=== PATIENT | female | born 1950 | race African-American/Black ===

== ENCOUNTER 2023-12-21 08:40 | Inpatient (IN) | payer OTHER ==
[~2023-12-21] VITALS: Ht 170.2 cm; Wt 102.1 kg
[2023-12-21 08:40] VITALS: BP_SYST 155; PULSE 92; RESP 19; TEMP 97.9; O2SAT 100
[2023-12-21 08:59] LABS: BASOPHILS % (AUTO) 0.5 % (0.0-2.0); EOSINOPHILS % (AUTO) 1.1 % (0.0-4.0); HEMATOCRIT 35.4 % (36-48); HEMOGLOBIN 11.3 g/dL (12.0-16.0); LYMPHOCYTES # (AUTO) 1.3 K/uL (1.0-5.5); LYMPHOCYTES % (AUTO) 31.9 % (20.5-51.5); MEAN CORPUSCULAR HEMOGLOBIN 28 pg (27-31); MEAN CORPUSCULAR HGB CONC 32 % (32-36); MEAN CORPUSCULAR VOLUME 87 fL (79.0-98.0); MONOCYTES # (AUTO) 0.5 K/uL (0.0-1.0); MONOCYTES % (AUTO) 11.6 % (1.7-9.3); NEUTROPHILS # (AUTO) 2.3 K/uL (1.8-7.7); NEUTROPHILS % (AUTO) 54.9 % (40.0-70.0); PLATELET COUNT (AUTO) 224 K/uL (130-430); RED BLOOD CELL COUNT(AUTO) 4.08 MIL/uL (4.2-6.2); RED CELL DISTRIBUTION WIDTH 13.8 % (9.0-15.0); WHITE BLOOD COUNT (AUTO) 4.1 K/uL (4.8-10.8)
[2023-12-21] MEDS: NACL 0.9% 1,000 ML IV ONE (09:21)
[2023-12-21 09:38] LABS: ANION GAP 5 (5-15); CALCIUM 9.3 mg/dL (8.4-11.0); CARBON DIOXIDE 29 mmol/L (23-29); CHLORIDE 104 mmol/L (98-107); GLUCOSE 176 mg/dL (74-106); POTASSIUM 3.8 mmol/L (3.5-5.1); SODIUM SERUM 138 mmol/L (136-145); UREA NITROGEN, BLOOD 13 mg/dL (8-21)
[2023-12-21 09:44] LABS: ALANINE AMINOTRANSFERASE 7 U/L (12-78); ALBUMIN 2.9 g/dL (3.4-4.8); ASPARTATE AMINOTRANSFERASE 13 U/L (10-37); BILIRUBIN,DIRECT 0.2 mg/dL (0.0-0.3); TOTAL BILIRUBIN 0.6 mg/dL (0.0-1.0); TOTAL PROTEIN, SERUM 8.2 g/dL (6.4-8.3)
[2023-12-21] MEDS ORDERED: iohexoL 350 mgI/mL, 100 ML INFUS..BTL IV ONE ×2 (10:02)
[2023-12-21 10:19] LABS: BILIRUBIN,URINE NEGATIVE (NEGATIVE); BLOOD, URINE NEGATIVE (NEGATIVE); CLARITY/URINE CLEAR (CLEAR); COLOR,URINE YELLOW (YELLOW); GLUCOSE,URINE NEGATIVE (NEGATIVE); KETONES,URINE NEGATIVE (NEGATIVE); LEUKOCYTE ESTERASE ,URINE NEGATIVE (NEGATIVE); NITRITE, URINE NEGATIVE (NEGATIVE); PH,URINE 6.5 (5.0-8.0); PROTEIN URINE NEGATIVE (NEGATIVE)
[2023-12-21] MEDS ORDERED: LEVO150T8 PO (12:06)
[2023-12-21] MEDS ORDERED: DILT240C96 PO (12:06)
[2023-12-21] MEDS ORDERED: ANAS1TAB51 PO (12:06)
[2023-12-21] MEDS ORDERED: CARB1TAB33 PO (12:06)
[2023-12-21 17:52] VITALS: BP_SYST 145; PULSE 87; RESP 16; TEMP 98.7; O2SAT 98
[2023-12-21 19:00] VITALS: BP_SYST 148; PULSE 70; RESP 20; TEMP 98.4; O2SAT 100
[2023-12-21] MEDS: CARBIDOPA/LEVODOPA 25/100 MG TABLET PO SCH (19:58)
[2023-12-21 20:00] VITALS: BP_SYST 148; PULSE 70; RESP 20; TEMP 98.4; O2SAT 100
[2023-12-22 00:36] VITALS: BP_SYST 146; PULSE 72; RESP 16; TEMP 96.7; O2SAT 96
[2023-12-22 04:00] VITALS: RESP 20
[2023-12-22] MEDS: LEVOTHYROXINE SODIUM 0.15 MG TABLET PO SCH (05:41)
[2023-12-22 07:49] VITALS: O2SAT 98
[2023-12-22 07:56] VITALS: BP_SYST 178; PULSE 89; RESP 18; TEMP 98.9
[2023-12-22] MEDS: ANASTROZOLE 1 MG TABLET (ARIMIDEX) PO SCH (08:32)
[2023-12-22] MEDS: DILTIAZEM HCL 240 MG CAP.SR.24H PO SCH (08:33)
[2023-12-22 10:05] LABS: ANION GAP 4 (5-15); CALCIUM 9.2 mg/dL (8.4-11.0); CARBON DIOXIDE 29 mmol/L (23-29); CHLORIDE 106 mmol/L (98-107); CREATININE 1.04 mg/dL (0.55-1.30); GLUCOSE 120 mg/dL (74-106); POTASSIUM 3.8 mmol/L (3.5-5.1); SODIUM SERUM 139 mmol/L (136-145); UREA NITROGEN, BLOOD 12 mg/dL (8-21)
[2023-12-22 11:14] VITALS: BP_SYST 157; PULSE 82; RESP 16; TEMP 97.7; O2SAT 97
[2023-12-22 15:43] VITALS: BP_SYST 111; PULSE 73; RESP 16; TEMP 97.8; O2SAT 100
== END 2023-12-22 17:05 | disposition left against medical advice (07) | DRG 206 ==
LOC: SED 08:40 → STU 13:28
PROVIDERS: ADMIT Specialist; ATTEND Specialist
DX: M94.0 Chondrocostal junction syndrome [Tietze] (principal); I95.1 Orthostatic hypotension; E66.01 Morbid (severe) obesity due to excess calories; Z68.35 Body mass index [BMI] 35.0-35.9, adult; I10 Essential (primary) hypertension; E03.9 Hypothyroidism, unspecified; I27.20 Pulmonary hypertension, unspecified; Z85.3 Personal history of malignant neoplasm of breast
CPT/HCPCS: 36415; 71275; 80048; 80076; 81001; 81003; 84484; 85025; 85379; 93005; 93306; 93970; 96360; 97116-GP; 97530-GP; 99285; G0378; Q9967

== ENCOUNTER 2023-12-25 22:18 | Inpatient (IN) | payer OTHER, MEDICAID ==
[~2023-12-25] VITALS: Ht 170.2 cm; Wt 105.2 kg
[~2023-12-25 22:18] MED LIST: ANAS1TAB51 PO; CARB1TAB33 PO; DILT240C96 PO; LEVO150T8 PO
[2023-12-25 22:29] VITALS: BP_SYST 152; PULSE 99; RESP 22; TEMP 98.3; O2SAT 99
[2023-12-25 23:23] LABS: BASOPHILS % (AUTO) 0.4 % (0.0-2.0); EOSINOPHILS % (AUTO) 0.8 % (0.0-4.0); HEMATOCRIT 33.5 % (36-48); HEMOGLOBIN 11.1 g/dL (12.0-16.0); LYMPHOCYTES # (AUTO) 1.5 K/uL (1.0-5.5); LYMPHOCYTES % (AUTO) 27.3 % (20.5-51.5); MEAN CORPUSCULAR HEMOGLOBIN 29 pg (27-31); MEAN CORPUSCULAR HGB CONC 33 % (32-36); MEAN CORPUSCULAR VOLUME 86 fL (79.0-98.0); MONOCYTES # (AUTO) 0.9 K/uL (0.0-1.0); MONOCYTES % (AUTO) 16.4 % (1.7-9.3); NEUTROPHILS # (AUTO) 2.9 K/uL (1.8-7.7); NEUTROPHILS % (AUTO) 55.1 % (40.0-70.0); PLATELET COUNT (AUTO) 217 K/uL (130-430); RED BLOOD CELL COUNT(AUTO) 3.89 MIL/uL (4.2-6.2); RED CELL DISTRIBUTION WIDTH 13.6 % (9.0-15.0); WHITE BLOOD COUNT (AUTO) 5.3 K/uL (4.8-10.8)
[2023-12-25 23:30] LABS: ANION GAP 4 (5-15); CARBON DIOXIDE 31 mmol/L (23-29); CHLORIDE 104 mmol/L (98-107); CREATININE 1.17 mg/dL (0.55-1.30); GLUCOSE 110 mg/dL (74-106); POTASSIUM 4.3 mmol/L (3.5-5.1); SODIUM SERUM 139 mmol/L (136-145); UREA NITROGEN, BLOOD 19 mg/dL (8-21)
[2023-12-25] MEDS: MORPHINE 4 MG INJ. 4 MG/ML VIAL IVP ONE (23:35)
[2023-12-25] MEDS: NITROGLYCERIN 1 INCH (GM) OINT. TP ONE (23:37)
[2023-12-25 23:38] LABS: ALANINE AMINOTRANSFERASE 8 U/L (12-78); ALBUMIN 3.1 g/dL (3.4-4.8); ASPARTATE AMINOTRANSFERASE 19 U/L (10-37); BILIRUBIN,DIRECT 0.1 mg/dL (0.0-0.3); TOTAL BILIRUBIN 0.4 mg/dL (0.0-1.0); TOTAL PROTEIN, SERUM 7.8 g/dL (6.4-8.3)
[2023-12-26 04:05] VITALS: BP_SYST 173; PULSE 100; RESP 18; TEMP 98.4; O2SAT 98
[2023-12-26] MEDS: CARBIDOPA/LEVODOPA 25/100 MG TABLET PO ONE (05:17)
[2023-12-26 08:00] VITALS: BP_SYST 163; PULSE 95; RESP 16; TEMP 96.6; O2SAT 100
[2023-12-26 09:24] VITALS: PULSE 95; RESP 16; TEMP 96.6; O2SAT 100
[2023-12-26 11:24] LABS: ALANINE AMINOTRANSFERASE 7 U/L (12-78); ALBUMIN 2.8 g/dL (3.4-4.8); ANION GAP 7 (5-15); ASPARTATE AMINOTRANSFERASE 15 U/L (10-37); BASOPHILS % (AUTO) 0.7 % (0.0-2.0); CALCIUM 8.6 mg/dL (8.4-11.0); CARBON DIOXIDE 27 mmol/L (23-29); CHLORIDE 106 mmol/L (98-107); CREATININE 0.99 mg/dL (0.55-1.30); EOSINOPHILS % (AUTO) 0.9 % (0.0-4.0); GLUCOSE 109 mg/dL (74-106); HEMATOCRIT 32.5 % (36-48); HEMOGLOBIN 10.5 g/dL (12.0-16.0); LYMPHOCYTES # (AUTO) 1.1 K/uL (1.0-5.5); LYMPHOCYTES % (AUTO) 24.6 % (20.5-51.5); MEAN CORPUSCULAR HEMOGLOBIN 28 pg (27-31); MEAN CORPUSCULAR HGB CONC 32 % (32-36); MEAN CORPUSCULAR VOLUME 86 fL (79.0-98.0); MONOCYTES # (AUTO) 0.6 K/uL (0.0-1.0); MONOCYTES % (AUTO) 14.4 % (1.7-9.3); NEUTROPHILS # (AUTO) 2.6 K/uL (1.8-7.7); NEUTROPHILS % (AUTO) 59.4 % (40.0-70.0); PLATELET COUNT (AUTO) 203 K/uL (130-430); POTASSIUM 4.1 mmol/L (3.5-5.1); RED BLOOD CELL COUNT(AUTO) 3.76 MIL/uL (4.2-6.2); RED CELL DISTRIBUTION WIDTH 13.4 % (9.0-15.0); SODIUM SERUM 140 mmol/L (136-145); TOTAL BILIRUBIN 0.4 mg/dL (0.0-1.0); UREA NITROGEN, BLOOD 18 mg/dL (8-21); WHITE BLOOD COUNT (AUTO) 4.5 K/uL (4.8-10.8)
[2023-12-26] MEDS: ANASTROZOLE 1 MG TABLET (ARIMIDEX) PO ONE (12:00)
[2023-12-26 13:00] VITALS: BP_SYST 137; PULSE 90; RESP 22; TEMP 97.1; O2SAT 100
[2023-12-26] MEDS: LEVOTHYROXINE SODIUM 0.15 MG TABLET PO ONE (13:27)
[2023-12-26] MEDS: LOSARTAN POTASSIUM 25 MG TABLET PO ONE (13:28)
[2023-12-26] MEDS: DILTIAZEM HCL 240 MG CAP.SR.24H PO ONE (13:29)
[2023-12-26] MEDS: CARBIDOPA/LEVODOPA 25/100 MG TABLET PO SCH (16:25)
[2023-12-26 16:37] VITALS: BP_SYST 152; PULSE 78; RESP 20; TEMP 97.9; O2SAT 100
[2023-12-26 17:53] VITALS: BP_SYST 152; PULSE 100; RESP 20; TEMP 97.9; O2SAT 100
[2023-12-26] MEDS ORDERED: LOSA-412 PO (18:12)
[2023-12-26] MEDS ORDERED: LOSARTAN POTASSIUM 25 MG TABLET PO SCH (21:00)
[2023-12-27] MEDS ORDERED: DILTIAZEM HCL 240 MG CAP.SR.24H PO ONE (09:00)
[2023-12-27] MEDS ORDERED: LEVOTHYROXINE SODIUM 0.15 MG TABLET PO SCH (09:00)
[2023-12-27] MEDS ORDERED: ANASTROZOLE 1 MG TABLET (ARIMIDEX) PO SCH (09:00)
== END 2023-12-26 21:05 | disposition home health service (06) | DRG 313 ==
LOC: SED 22:18 → STU 12-26 01:32 → SMU 12-26 14:27
PROVIDERS: ADMIT Specialist; ATTEND Specialist
DX: R07.89 Other chest pain (principal); E44.1 Mild protein-calorie malnutrition; E86.0 Dehydration; Z20.822 Contact with and (suspected) exposure to COVID-19; I10 Essential (primary) hypertension; E66.9 Obesity, unspecified; D64.9 Anemia, unspecified; E03.9 Hypothyroidism, unspecified; Z79.899 Other long term (current) drug therapy; Z68.36 Body mass index [BMI] 36.0-36.9, adult; Z90.11 Acquired absence of right breast and nipple; Z90.710 Acquired absence of both cervix and uterus
CPT/HCPCS: 36415; 71045; 80048; 80053; 80076; 83880; 84484; 85025; 85379; 87081; 93005; 96374; 99285; J2270